=== PATIENT | male | born 1975 | race Two or more races ===

== ENCOUNTER 2016-08-09 04:05 | Emergency (ER) | payer MEDICAID, OTHER ==
[2016-08-09 04:14] VITALS: BP 136/99; RESP 16; TEMP 98.1
[2016-08-09] MEDS ORDERED: NS 1,000 ML IV ONE (04:48)
[2016-08-09] MEDS ORDERED: CLINDAMYCIN 600 MG/DEXTROSE 50 ML IV ONE (04:51)
--- NOTE | 2016-08-09 04:53 | EDPHY ---
H & P Stated Complaint: left testical bleeding, pain Time Seen by Provider: 08/09/16 04:34 HPI/ROS: HPI The patient presents with left-sided scrotal swelling which has been present for the last 3 days and getting progressively worse. He now notices that it is draining bloody discharge over the last 1 day. He has been unable to sleep because the pain is so severe. It is achy in nature. He denies any direct trauma to the area. He has not had a fever or chills, nausea or vomiting. He has not checked his blood glucose recently. He has felt well otherwise.. REVIEW OF SYSTEMS Constitutional: No fever, no chills. Eyes: No discharge. ENT: No sore throat. Cardiovascular: No chest pain, no palpitations. Respiratory: No cough, no shortness of breath. Gastrointestinal: No abdominal pain, no vomiting. Genitourinary: No hematuria. Musculoskeletal: No back pain. Skin: No rashes. Neurological: No headache. PMHx: Diabetes Soc Hx: Housed PHYSICAL General Appearance: Alert, no distress Eyes: Pupils equal and round no pallor or injection ENT, Mouth: Mucous membranes moist Respiratory: There are no retractions, lungs are clear to auscultation Cardiovascular: Regular rate and rhythm Gastrointestinal: Abdomen is soft and non-tender, no masses, bowel sounds normal : Left hemiscrotum with lateral and inferior area of fluctuance which is superficial, there is a central area draining pus Neurological: A&O, moves all extremities Skin: Warm and dry, no rashes Musculoskeletal: Neck is supple non tender Extremities: symmetrical, full range of motion Psychiatric: Patient is oriented X 3, there is no agitation Source: Patient Exam Limitations: No limitations - Personal History Current Tetanus/Diphtheria Vaccine: Yes Current Tetanus Diphtheria and Acellular Pertussis (TDAP): Yes Tetanus Vaccine Date: < 10 DAYS - Medical/Surgical History Hx Asthma: No Hx Chronic Respiratory Disease: No Hx Diabetes: Yes Hx Cardiac Disease: No Hx Renal Disease: No Hx Cirrhosis: No Hx Alcoholism: No Hx HIV/AIDS: No Hx Splenectomy or Spleen Trauma: No Other PMH: htn; t2DM; hyperlipidemia; - Social History Smoking Status: Never smoked Constitutional: Initial Vital Signs Temperature (C) 36.7 C 08/09/16 04:05 Heart Rate 98 08/09/16 04:05 Respiratory Rate 16 08/09/16 04:05 Blood Pressure 136/99 H 08/09/16 04:05 O2 Sat (%) 96 08/09/16 04:05 O2 Delivery Mode Room Air Allergies/Adverse Reactions: No Known Allergies Allergy (Unverified 12/09/11 06:45) Home Medications: Medication Instructions Recorded Aspirin [Aspir 81] 81 mg PO 12/09/11 Diabetic Medicine 12/09/11 Atorvastatin Calcium 09/14/14 GLIPIZIDE 09/14/14 Lisinopril 09/14/14 Metformin HCl ER 09/14/14 Cephalexin [Keflex (*)] 500 mg PO Q6H #28 cap 08/09/16 Sulfamethox/Tmp 800/160 mg 1 tab PO BID #14 tab 08/09/16 [Bactrim Ds] Medical Decision Making Differential Diagnosis: This is a 40-year-old male with left-sided scrotal pain and drainage. Likely scrotal abscess. He does have a history of diabetes. Plan for incision and drainage, IV fluids, antibiotics, will check basic labs. In the emergency room, incision and drainage was performed, there was a cavity with minimal pus. I feel his abscess has already drained on its own prior to his presentation. This was packed with packing. Labs were checked and did reveal hyperglycemia with no anion gap. I discussed this with the patient and I have instructed his him to watch his carbs and take his medication. I would like him to follow up with Urology. I have given him the information to call for a follow-up appointment. Otherwise he can follow [facility]. Because of his diabetes, I will send him home on antibiotics. Differential diagnoses considered include scrotal abscess, epididymitis, less likely testicular torsion. - Data Points Laboratory Results: Laboratory Results 08/09/16 05:00 08/09/16 05:00 08/09/16 08/09/16 05:00 05:00 WBC 8.21 10^3/uL 10^3/uL (3.80-9.50) RBC 4.63 10^6/uL 10^6/uL (4.40-6.38) Hgb 14.3 g/dL g/dL (13.7-17.5) Hct 41.7 % % (40.0-51.0) MCV 90.1 fL fL (81.5-99.8) MCH 30.9 pg pg (27.9-34.1) MCHC 34.3 g/dL g/dL (32.4-36.7) RDW 12.3 % % (11.5-15.2) Plt Count 234 10^3/uL 10^3/uL (150-400) MPV 10.5 fL fL (8.7-11.7) Neut % (Auto) 73.2 % % (39.3-74.2) Lymph % (Auto) 16.1 % % (15.0-45.0) Cocke % (Auto) 8.0 % % (4.5-13.0) Eos % (Auto) 1.6 % % (0.6-7.6) Baso % (Auto) 0.4 % % (0.3-1.7) Nucleat RBC Rel Count 0.0 % % (0.0-0.2) Absolute Neuts (auto) 6.01 10^3/uL 10^3/uL (1.70-6.50) Absolute Lymphs (auto) 1.32 10^3/uL 10^3/uL (1.00-3.00) Absolute Monos (auto) 0.66 10^3/uL 10^3/uL (0.30-0.80) Absolute Eos (auto) 0.13 10^3/uL 10^3/uL (0.03-0.40) Absolute Basos (auto) 0.03 10^3/uL 10^3/uL (0.02-0.10) Absolute Nucleated RBC 0.00 10^3/uL 10^3/uL (0-0.01) Immature Gran % 0.7 % % (0.0-1.1) Immature Gran # 0.06 10^3/uL 10^3/uL (0.00-0.10) Sodium 138 mEq/L mEq/L (134-144) Potassium 4.3 mEq/L mEq/L (3.5-5.2) Chloride 104 mEq/L mEq/L (97-110) Carbon Dioxide 21 mEq/l L mEq/l (22-31) Anion Gap 13 mEq/L mEq/L (8-16) BUN 11 mg/dL mg/dL (7-23) Creatinine 0.5 mg/dL L mg/dL (0.7-1.3) Estimated GFR > 60 Glucose 380 mg/dL H mg/dL (70-100) Calcium 9.5 mg/dL mg/dL (8.5-10.4) Medications Given: Discontinued Medications Clindamycin Phosphate/Dextrose (Cleocin 600 Mg (Premix)) 50 mls @ 100 mls/hr IV EDNOW ONE PRN Reason: Protocol Stop: 08/09/16 05:20 Last Admin: 08/09/16 05:09 Dose: 50 mls Sodium Chloride (Ns) 1,000 mls @ 0 mls/hr IV ONCE ONE; Wide Open PRN Reason: Protocol Stop: 08/09/16 04:49 Last Admin: 08/09/16 05:10 Dose: 1,000 mls Morphine Sulfate (Morphine) 4 mg IVP EDNOW ONE Stop: 08/09/16 04:49 Last Admin: 08/09/16 05:10 Dose: 4 mg Departure - Departure Disposition: Home, Routine, Self-Care Clinical Impression: Scrotal wall abscess Hyperglycemia due to type 2 diabetes mellitus Qualifiers: Diabetes mellitus assisted insulin use: without assisted use Qualified Code(s ): E11.65 - Type 2 diabetes mellitus with hyperglycemia Condition: Good Instructions: Abscess (ED), Warm Compress or Soak (ED) Additional Instructions: Please leave the packing in for the next 1-2 days. Please call the urologist this morning for a follow-up appointment within the next 1-2 days. Your glucose is also quite elevated, you should follow up with [facility] for this. Return to the emergency room if you develop any fevers, worsening pain or swelling. Referrals: Gary Boland MD [Medical Doctor] - As per Instructions [facility],. [Clinic] - As per Instructions Stand Alone Forms: Work Excuse Prescriptions: Cephalexin [Keflex (*)] 500 mg PO Q6H #28 cap Sulfamethox/Tmp 800/160 mg [Bactrim Ds] 1 tab PO BID #14 tab
[2016-08-09 05:16] LABS: % IMMATURE GRANULYOCYTES 0.7 % (0.0-1.1); ABSOLUTE IMMATURE GRANULOCYTES 0.06 10^3/uL (0.00-0.10); ADD DIFF? NO; ADD MORPH? NO; ADD SCAN? NO; ATYPICAL LYMPHOCYTE FLAG 0 (0-99); FRAGMENT RBC FLAG 0 (0-99); HEMATOCRIT 41.7 % (40.0-51.0); HEMOGLOBIN 14.3 g/dL (13.7-17.5); LEFT SHIFT FLG 0 (0-99); LIPEMIA HEMOLYSIS FLAG 90 (0-99); MEAN CELL HEMOGLOBIN 30.9 pg (27.9-34.1); MEAN CELL HEMOGLOBIN CONCENTR. 34.3 g/dL (32.4-36.7); MEAN CELL VOLUME 90.1 fL (81.5-99.8); MEAN PLATELET VOLUME 10.5 fL (8.7-11.7); PLATELET CLUMPS FLAG 10 (0-99); PLATELET COUNT 234 10^3/uL (150-400); RED BLOOD CELL COUNT 4.63 10^6/uL (4.40-6.38); RED CELL DISTRIBUTION WIDTH 12.3 % (11.5-15.2)
[2016-08-09 05:36] LABS: ANION GAP 13 mEq/L (8-16); CALCIUM 9.5 mg/dL (8.5-10.4); CARBON DIOXIDE 21 mEq/l (22-31); CHLORIDE 104 mEq/L (97-110); CREATININE 0.5 mg/dL (0.7-1.3); GLOMERULAR FILTRATION RATE > 60; GLUCOSE 380 mg/dL (70-100); POTASSIUM 4.3 mEq/L (3.5-5.2); SODIUM 138 mEq/L (134-144)
[2016-08-09 06:12] VITALS: PULSE 73; O2SAT 92
== END 2016-08-09 06:10 | disposition home or self-care (01) ==
DX: N49.2 Inflammatory disorders of scrotum (principal); E11.65 Type 2 diabetes mellitus with hyperglycemia; I10 Essential (primary) hypertension; Z79.82 Long term (current) use of aspirin; Z79.84 Long term (current) use of oral hypoglycemic drugs
CPT/HCPCS: 96365